=== PATIENT | female | born 1990 | race Caucasian/White ===

== ENCOUNTER 2016-06-05 20:19 | Emergency (ER) | payer OTHER ==
[~2016-06-05] VITALS: Ht 170.2 cm; Wt 67.0 kg
[~2016-06-05 20:19] MED LIST: BACL10TA PO; CLON.5 PO; CLON1TAB PO; ESLI1TAB PO; LAMO100T PO; SODI0.9I29 IV FLUSH; VIMP200T PO; ZOFR4TAB PO; [UNRECOGNIZED DRUG - CODE] IV; [UNRECOGNIZED DRUG - CODE] PO
[2016-06-05 21:01] VITALS: BP 108/71; PULSE 87; RESP 20; TEMP 98.9; O2SAT 96
--- NOTE | 2016-06-05 21:17 | PD ---
HPI Chief Complaint: Allergic/Adverse Reaction Time Seen by Provider: 21:06 Travel History International Travel<30 days: No Contact w/Intl Traveler<30days: No Traveled to known affect area: No History of Present Illness HPI The patient is a 26-year-old female with a history of multiple medical problems including multiple allergies, seizures and brain stem atrophy who had bilateral TMJ surgery today at [facility] in [place]. They discharged her but the patient feels that her throat is swelling. She is taped up around the face including tape surrounding the lower mandible which pushes up on the tongue. She denies any skin rash or wheezing. 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) Diabetes: Yes (BLOOD SUGAR UNSTABLE AT TIMES) Diminished Hearing: No Gastrointestinal Disorders: Yes (GASTROPORESIS) Genetic Disorder: Yes (MITOCHONDRIAL ENCEPHALOPATHY) GERD: Yes Genitourinary: Yes (NEPHOCALCINOSIS WITH STONES) Hypertension: Yes (DYSAUTONOMIA) Immune Disorder: Yes (WEAKENED) Implanted Vascular Access Dvce: Yes (PICC LINE RIGHT ) Kidney Stones: Yes Musculoskeletal: Yes (SPASTIC IN ALL 4 LIMBS AND LOW MUSCLE TONE IN FACE) Respiratory: Yes (SLEEP APNEA) Integumentary: Yes (SHINGLES) Immunizations Current: Yes Seizures: Yes (INTRACTABLE) Shingles: Yes Sleep Apnea: Yes (CENTRAL AND OBSTRUCTIVE) Past Surgical History Abdominal Surgery: Yes (NISSANFUNDOPLICATION, G/J TUBE, SUBTOTAL COLECTOMY, BOWEL OBSTRUCTION X 2) Body Medical Devices: PORT , G/J-TUBE AND VAGAL NERVE STIMULATOR Neurologic Surgery: Yes (VAGAL NERVE STIMULATOR) Thoracic Surgery: Yes (PORT PLACEMENT x 7) Tonsillectomy: Yes (and adenoids) Other Surgery: Yes (apendicostomy, sinus surgery) Social History Alcohol Use: No Tobacco Use: No Substance Use: No Allergies-Medications (Allergen,Severity, Reaction): Coded Allergies: Latex (Verified Allergy, Severe, 03/02/16) Pertussis Vaccine (Verified Allergy, Severe, 03/02/16) Septra (Verified Allergy, Severe, rash and wheezing and swelling, 03/02/16 ) Lactated Ringer's (Verified Allergy, Intermediate, CAUSES ACIDOSIS, ) Vancomycin (Verified Allergy, Intermediate, Rash, 03/02/16) Reported Meds & Prescriptions Reported Meds & Active Scripts Active Reported Baclofen 10 Mg Tab 10 Mg PO TID Klonopin (Clonazepam) 0.5 Mg Tab 0.5 Mg PO TID Clonazepam 1 Mg Tab 0.5 Mg PO Q12HR Aptiom (Eslicarbazepine) 200 Mg Tab 200 Mg PO DAILY Lamotrigine 100 Mg Tab 200 Mg PO TID Zofran (Ondansetron HCl) 4 Mg Tab 4 Mg PO Q6HR PRN Mestinon Liq (Pyridostigmine [place]) 60 Mg/5 Ml Syp 2.5 Ml PO BID Sodium Chloride Flush (Sodium Chloride) 0.9 % Inj 1,500 Ml IV FLUSH DIRECTED [id number] 200 Mg Tab 200 Mg PO BID Tpn Electrolytes 1,800 Ml IV DIRECTED Review of Systems Except as stated in HPI: all other systems reviewed are Neg Physical Exam Narrative GENERAL: Well-nourished, well-developed patient in no respiratory distress. Her vital signs are normal, one I observe her the oximetry is 97/98% on room air. SKIN: Warm and dry. HEAD: Normocephalic. EYES: No scleral icterus. No injection or drainage. NECK: Supple, trachea midline. No JVD or lymphadenopathy. No stridor is heard. CARDIOVASCULAR: Regular rate and rhythm without murmurs, gallops, or rubs. RESPIRATORY: Breath sounds equal bilaterally. No accessory muscle use. GASTROINTESTINAL: Abdomen soft, non-tender, nondistended. MUSCULOSKELETAL: No cyanosis, or edema. BACK: Nontender without obvious deformity. No CVA tenderness. Data Data Last Documented VS Vital Signs Date Time Temp Pulse Resp B/P Pulse Ox O2 Delivery O2 Flow Rate FiO2 06/05/16 21:01 98.9 87 20 108/71 96 MDM Medical Decision Making Medical Screen Exam Complete: Yes Emergency Medical Condition: Yes Medical Record Reviewed: Yes Differential Diagnosis Postsurgical swelling in throat, delayed drug reaction, airway obstruction, hypoxemia Narrative Course The patient is comfortable sitting upright and she will probably have to sit upright tonight in order to reduce the swelling around the surgical sites, allow for better secretion clearing and to keep the tongue out of the airway is much as possible. Tomorrow, if not better, she should go to [facility] in [place] and get a reevaluation from the ENT people there. At this time she has no significant airway obstruction. She is not a candidate for intubation at this time and intubation could cause significant damage. Also, prednisone is unlikely to be helpful as are antihistamines. Mother states she has had a seizure on Benadryl once. Only if there is obvious and significant improvement she could stay home tomorrow, continually sitting up and not exerting herself. The swelling appears to be from the postsurgical swelling. This does not appear allergy related. Diagnosis Primary Impression: Throat swelling Disposition: DISCHARGE HOME Condition: Stable Negrito Rosales MD Jun 05, 2016 21:17
[2016-06-05 21:29] VITALS: BP 119/72; PULSE 66; RESP 20; O2SAT 98
== END 2016-06-05 21:58 | disposition home or self-care (01) ==
LOC: PHED 20:19
DX: R22.1 Localized swelling, mass and lump, neck (principal); J45.909 Unspecified asthma, uncomplicated; G80.9 Cerebral palsy, unspecified; E11.9 Type 2 diabetes mellitus without complications
CPT/HCPCS: 99283